=== PATIENT | female | born 1950 | race Two or more races ===

== ENCOUNTER 2020-11-17 14:53 | Emergency (ER) | payer MEDICARE ==
[~2020-11-17] VITALS: Ht 170.2 cm; Wt 81.6 kg
--- NOTE | 2020-11-17 15:18 | Emergency Room Report ---
History of Present Illness General Chief Complaint: Upper Extremity Injury Source: Patient Present Illness HPI Patient is a 70-year-old female presents for increased right-sided shoulder pain. Reports having recent fall injury. Subsequently unable to move her shoulder. Prior history of injury to the opposite shoulder. Injury occurred just shortly prior to arrival. Denies any other locations of injury. Allergies: Coded Allergies: SULFAMETHOXAZOLE (Verified Allergy, Unknown, 11/17/20) TRIMETHOPRIM (Verified Allergy, Unknown, 11/17/20) Uncoded Allergies: PCN (Allergy, Unknown, 11/17/20) COVID-19 Screening Contact w/high risk pt: No Experienced COVID-19 symptoms?: No COVID-19 Testing performed DATE PULLER: No Patient History Past Medical History: see triage record Reviewed Nursing Documentation: PMH: Agreed; PSxH: Agreed Nursing Documentation-PMH Hx Hypertension: Yes Hx Diabetes: Yes Review of Systems All Other Systems: negative except mentioned in HPI Physical Exam Vital Signs Date Time Temp Pulse Resp B/P (MAP) Pulse Ox O2 Delivery O2 Flow Rate FiO2 11/17/20 14:57 98.6 61 18 161/85 (110) 96 Room Air General Appearance: well appearing, no apparent distress, alert, GCS 15 Head: normocephalic, atraumatic ENT: hearing grossly normal, normal voice Neck: full range of motion, supple Respiratory: no respiratory distress, speaking full sentences Cardiovascular #1: normal inspection Gastrointestinal: normal inspection Musculoskeletal: decreased range of mation - Decreased range of motion held in abduction Neurologic: alert, admission liaison III-XII nml as tested, oriented x3, normal gait Psychiatric: mood/affect normal Skin: no rash Procedures Joint Reduction Joint Reduction : Consent: Emergent Joint Reduction Site: shoulder (R) Procedural Sedation: Yes Reduction Attempts: One Pre-Procedure NV Exam: Yes Post-Procedure NV Exam: Yes Post Joint Reduction Film: joint reduced Patient Tolerated: Well Complications: Other Progress Patient became somewhat hypoventilatory and required Narcan and brief bagging. Patient's oxygen saturation was maintained throughout procedure. Procedural Sedation Consent: Written Procedures/Plans: Closed Reduction Plan for Moderate Sedation: Propofol ASA Score: II Procedure Narrative Patient was given propofol and 10 mL aliquots until adequately sedated. A total of 60 mL of propofol was given. Patient was briefly assisted with ventilation via bag valve mask and subsequently given Narcan with improvement in respiration rate. Patient maintained oxygen saturation throughout procedure. Start Time: 15:50 End Time: 16:00 Communication: No Apparent Limitation Mental Status: Awake Respiration: Unlabored Skin Condition: WNL Abdomen: WNL Nausea: NO Vomiting: NO Medical Decision Making Diagnostic Impression: Primary Impression: Dislocation closed Additional Impression: Fracture, humerus ER Course Patient presented after fall. Differential diagnosis include was not limited to fracture, dislocation, contusion, AC separation among others. X-ray imaging of the right shoulder 2 views interpreted by me showed anterior shoulder dislocation as well as proximal humerus fracture. Patient was given morphine for pain. She was subsequently consented for sedation and advised risk benefits and alternatives. Patient was noted to have improvement in location after axial traction. Post procedure x-ray showed continued fracture as well as adequate humeral head reduction. Patient was placed in a immobilizer. Shows no signs of head injury. She was awake and alert at the time of discharge. Patient was advised to follow-up with her orthopedic physician. She is advised to return if any concerns. This medical record is generated with [email or web address] software test automation engineer software. There may be some software test automation engineer discrepancies related to use of this software Last Vital Signs Date Time Temp Pulse Resp B/P (MAP) Pulse Ox O2 Delivery O2 Flow Rate FiO2 11/17/20 14:57 98.6 61 18 161/85 (110) 96 Room Air Status: improved Disposition: HOME, SELF-CARE Condition: Stable Scripts Ibuprofen (Ibuprofen) 400 Mg Tablet 400 MG PO EVERY 8 HOURS, #30 TAB Prov: Israel Ross MD 11/17/20 Naloxone HCl (Narcan) 4 Mg [place] 4 MG NS NEEDED for overdose, #1 SPRAY Prov: Israel Ross MD 11/17/20 Hydrocodone/Acetaminophen 5-325* (HYDROCODONE/ACETAMINOPHEN 5-325*) 1 Each Tablet 1 TAB ORAL Q6H PRN for For Pain, #20 TAB 0 Refills Prov: Israel Ross MD 11/17/20 Israel Ross MD Nov 17, 2020 15:18
[2020-11-17 15:30] VITALS: BP 161/85
[2020-11-17] MEDS ORDERED: Morphine Sulfate 2mg/ml Inj(IV/IM USE ONLY) IVP ONE ×2 (15:30→16:00)
--- NOTE | 2020-11-17 15:32 | NUR ---
ED Nurse Note:pt. sliped and fell today injuring her right shoulder, no head injury, given pain meds, x-ray done
[2020-11-17] MEDS ORDERED: Morphine Sulfate 2mg/ml Inj(IV/IM USE ONLY) ONE (15:39)
[2020-11-17 15:50] VITALS: BP 198/105
--- NOTE | 2020-11-17 15:50 | NUR ---
ED Nurse Note:moderate sedation started per protocol and MD order
[2020-11-17] MEDS ORDERED: Naloxone 1mg/ml 2ml ONE (16:00)
--- NOTE | 2020-11-17 16:00 | NUR ---
ED Nurse Note:moderate sedation complited , right shoulder placed back in proper position, pt. tolerated well
[2020-11-17] MEDS ORDERED: Naloxone 1mg/ml 2ml IVP ONE (16:15)
[2020-11-17 16:38] VITALS: BP 167/75
--- NOTE | 2020-11-17 17:11 | Diagnostic Imaging Report ---
EXAM: XR Right Shoulder Complete, 2 or More Views CLINICAL HISTORY: PAIN TECHNIQUE: Two or more views of the right shoulder. COMPARISON: Right shoulder radiographs on 11/17/2020 at 1519 hrs. FINDINGS: Bones/joints: Normal alignment of the right shoulder status post reduction. Mildly displaced fractures of the right humeral head and neck. Osteopenia. Soft tissues: Unremarkable. IMPRESSION: 1. Normal alignment of the right shoulder status post reduction. 2. Mildly displaced fractures of the right humeral head and neck.
[2020-11-17] MEDS ORDERED: HYDROCODON-ACE1 EA15 ORAL (17:17)
[2020-11-17] MEDS ORDERED: NARCAN4 MG NS (17:17)
[2020-11-17] MEDS ORDERED: IBUPROFEN400 M1 PO (17:17)
--- NOTE | 2020-11-17 17:28 | Diagnostic Imaging Report ---
EXAM: XR Right Shoulder Complete, 2 or More Views CLINICAL HISTORY: PAIN TECHNIQUE: Two or more views of the right shoulder. COMPARISON: None. FINDINGS: Bones/joints: The patient is status post reduction of the right shoulder. The glenohumeral alignment is anatomical. Redemonstrated is right humeral neck fracture with mild medial displacement of the distal fragment. Soft tissues: Unremarkable. IMPRESSION: 1. Status post reduction with anatomic alignment at the glenohumeral joint. 2. Right humeral neck fracture as described.
--- NOTE | 2020-11-17 17:30 | NUR ---
ED Nurse Note:shoulder immobilizer placed on pt's right shoulder
[2020-11-17 17:59] VITALS: BP 167/75
--- NOTE | 2020-11-17 18:00 | NUR ---
ER DISCHARGE NOTE: Patient is cleared to be discharged per ERMD, pt is aox4, on room air, with stable vital signs. pt was given dc and prescription instructions, pt was able to verbalize understanding, pt id band and iv site removed without complications. pt is able to ambulate with steady gait. pt took all belongings.
== END 2020-11-17 18:01 | disposition home or self-care (01) ==
LOC: EMR 15:17
DX: S42.301A Unspecified fracture of shaft of humerus, right arm, initial encounter for closed fracture (principal); S43.004A Unspecified dislocation of right shoulder joint, initial encounter; W19.XXXA Unspecified fall, initial encounter; Y92.9 Unspecified place or not applicable; Z88.2 Allergy status to sulfonamides; Z88.0 Allergy status to penicillin; E11.9 Type 2 diabetes mellitus without complications; I10 Essential (primary) hypertension
CPT/HCPCS: 24505; 73030; 96374; 96375; 96376; 99284; J2270; J2310; J2405; J2704; J7040